=== PATIENT | female | born 1965 | race Caucasian/White ===

== ENCOUNTER 2018-01-13 16:00 | Outpatient (RCR) | payer BC | END 2018-01-26 15:49 | disposition home or self-care (01) | LOC: WSPT 16:00 | DX: M25.562 Pain in left knee (principal) ==

== ENCOUNTER → 2019-11-23 | Outpatient (CLI) | payer BC | LOC: MC.RAD 14:38 | DX: Z12.31 Encounter for screening mammogram for malignant neoplasm of breast (principal) ==